=== PATIENT | male | born 1990 | race African-American/Black ===

== ENCOUNTER 2019-10-07 11:45 | Emergency (ER) | payer MEDICAID ==
[~2019-10-07] VITALS: Ht 177.8 cm; Wt 82.0 kg
[2019-10-07 14:38] VITALS: BP 126/71
== END 2019-10-07 14:41 | disposition home or self-care (01) ==
LOC: ER 12:12
DX: L02.416 Cutaneous abscess of left lower limb (principal); L02.31 Cutaneous abscess of buttock
CPT/HCPCS: 99282